=== PATIENT | female | born 1980 | race Caucasian/White ===

== ENCOUNTER 2018-01-19 14:09 | Emergency (ER) | payer OTHER ==
[~2018-01-19] VITALS: Ht 167.6 cm; Wt 63.5 kg
[2018-01-19 14:16] VITALS: BP 109/68
== END 2018-01-19 14:51 | disposition home or self-care (01) ==
LOC: ER 14:12
DX: H11.31 Conjunctival hemorrhage, right eye (principal); E03.9 Hypothyroidism, unspecified; Z90.89 Acquired absence of other organs
CPT/HCPCS: A4606; Z7610